=== PATIENT | male | born 1965 | race Caucasian/White ===

== ENCOUNTER 2019-09-02 08:37 | Emergency (ER) | payer BC ==
[~2019-09-02] VITALS: Ht 167.6 cm; Wt 84.4 kg
[2019-09-02] MEDS ORDERED: ZOLOFT100 MG PO (08:50)
== END 2019-09-02 10:55 | disposition home or self-care (01) ==
LOC: ED 08:37
DX: S61.012A Laceration without foreign body of left thumb without damage to nail, initial encounter (principal); F17.200 Nicotine dependence, unspecified, uncomplicated; Z79.899 Other long term (current) drug therapy; W55.51XA Bitten by raccoon, initial encounter; Y93.89 Activity, other specified; Y92.89 Other specified places as the place of occurrence of the external cause; Y99.8 Other external cause status

== ENCOUNTER 2019-09-05 09:47 | Emergency (ER) | payer BC ==
[~2019-09-05] VITALS: Ht 167.6 cm; Wt 83.9 kg
[~2019-09-05 09:47] MED LIST: ZOLOFT100 MG PO
== END 2019-09-05 10:25 | disposition home or self-care (01) ==
LOC: ED 09:47
DX: Z23 Encounter for immunization (principal); Z79.899 Other long term (current) drug therapy

== ENCOUNTER 2019-09-09 16:47 | Emergency (ER) | payer BC ==
[~2019-09-09] VITALS: Ht 167.6 cm; Wt 83.9 kg
== END 2019-09-09 17:54 | disposition home or self-care (01) ==
LOC: ED 16:47
DX: Z23 Encounter for immunization (principal)

== ENCOUNTER 2019-09-16 15:49 | Emergency (ER) | payer BC ==
[~2019-09-16] VITALS: Ht 175.2 cm; Wt 86.2 kg
== END 2019-09-16 16:46 | disposition home or self-care (01) ==
LOC: ED 15:49
DX: Z23 Encounter for immunization (principal)